=== PATIENT | female | born 1955 | race Caucasian/White ===

== ENCOUNTER 2017-01-06 07:42 | Day surgery (SDC) | payer BC, SELFPAY ==
[2017-01-04 20:34] LABS: BASOPHILS 0.6 %; BASOPHILS ABSOLUTE 0.05 10/3/uL (0.0-0.16); EOSINOPHILS 1.8 %; EOSINOPHILS ABSOLUTE 0.15 10/3/uL (0.0-0.53); HEMATOCRIT 42.1 % (36.0-48.0); HEMOGLOBIN 13.9 g/dL (12.0-16.0); IMMATURE GRANULOCYTES 0.2 %; IMMATURE GRANULOCYTES ABSOLUTE 0.02 10/3/uL (0.0-0.11); LYMPHOCYTES 37.6 %; LYMPHOCYTES ABSOLUTE 3.14 10/3/uL (0.67-4.30); MEAN PLATELET VOLUME 10.3 fL (9.2-13.0); MONOCYTES 6.6 %; MONOCYTES ABSOLUTE 0.55 10/3/uL (0.21-1.20); NEUTROPHILS 53.2 %; NEUTROPHILS ABSOLUTE 4.43 10/3/uL (2.02-8.40); PLATELET COUNT 383 10/3/uL (150-400); RBC DISTRIBUTION WIDTH 13.9 % (12.0-16.0); RED CELL COUNT 4.21 10/6/uL (4.0-5.6); WHITE BLOOD CELLS 8.3 10/3/uL (4.5-10.5)
[2017-01-04 20:36] LABS: MANUAL DIFF NO %
[2017-01-04 20:59] LABS: A/G RATIO 1.3 (0.7-1.9); BUN (BLOOD UREA NITROGEN) 10 MG/DL (6-23); CALCIUM, SERUM 8.9 MG/DL (8.5-10.4); CHLORIDE, SERUM 108 MMOL/L (96-112); CO2 (CARBON DIOXIDE) 27 MMOL/L (24-34); CREATININE 0.61 MG/DL (0.55-1.02); GFR AFRICAN AMERICAN 113 ML/MIN (>=60); GFR NON AFRICAN AMERICAN 98 ML/MIN (>=60); GLOBULIN 3.2 G/DL (2.5-4.1); SGOT(AST) 33 U/L (5-40); SGPT(ALT) 37 U/L (5-65); SODIUM, SERUM 145 MMOL/L (135-148); TOTAL BILIRUBIN 0.2 MG/DL (0-1.2); TOTAL PROTEIN 7.2 G/DL (6.0-8.5)
[2017-01-04 21:01] LABS: ALKALINE PHOSPHATASE 82 U/L (45-117); GLUCOSE, SERUM 93 MG/DL (60-99); POTASSIUM, SERUM 3.7 MMOL/L (3.5-5.3)
--- NOTE | ~2017-01-06 | OP ---
Record Of Operation [facility] [address] [place]. [address] NAME: ANDRE UGALDE : 55 [place]US : [place] [facility] [place] [id number] AGE: 61 ADM/REG DATE : 01/06/17 MR#: [id number] REPORT SERV DATE: 01/06/17 DICTATED BY: ERIBERTO JEWELL JR. DATE: 01/06/17 REPORT STATUS : Draft TRANSCRIBED BY: BRIAN DATE: 01/06/17 DATE OF PROCEDURE: REASON FOR SURGERY: This 61-year-old patient presents with a malignancy in the superior right breast. She has been counseled extensively and the extent of the tumor oriented on ultrasound. She is now to undergo breast preservation therapy. PREOPERATIVE DIAGNOSIS: Carcinoma, right breast. POSTOPERATIVE DIAGNOSIS: Carcinoma, right breast. SURGERY PERFORMED: Dilliner node localization followed by right breast segmentectomy and sentinel node resection. DESCRIPTION OF PROCEDURE: The patient was initially injected in the nuclear medicine facility. She was taken to the operating room, and under general anesthesia, she was prepped and draped in supine position in usual sterile fashion. A curvilinear incision was made superiorly in the right breast over the palpable mass. Vertical dissection was carried down to 0.5 cm and flaps were then elevated to incorporate the entire breast mound. Attention was turned in the longitudinal fashion to incorporate the ultrasound extension of the nodularity. A 3-dimensional excision, measuring 4 x 4 x 5 cm was performed keeping the mass center most within the specimen. It was removed and oriented for pathology. A full centimeter margin in the first section was noted. On sectioning with pathology, a 0.5 cm margin was evident as expected with the closest margin appearing in the superficial fatty plane, but still, at least a 0.5 cm remains. The wound was irrigated and hemostasis obtained. The wound was closed with two layers of Monocryl. Attention was turned to the right axilla. With help of the gamma probe, a small curvilinear incision was made and vertical dissection was carried down to a singly active spot. Two small nodes were removed that were both active with background counts as recorded in the log book. Background counts were recorded. The wound was irrigated and hemostasis obtained. The wound was closed with two layers of Monocryl. The patient tolerated the procedure well without complications. ESTIMATED BLOOD LOSS: Less than 20 mL. SPONGE COUNT: Correct. MR/MODL Eriberto Jewell Jr., M.D. Record Of Operation [facility] [address] [place]. [address] NAME: ANDRE UGALDE : 55 [place] [facility] [place] [id number] AGE: 61 ADM/REG DATE : 01/06/17 MR#: [id number] REPORT SERV DATE: 01/06/17 DICTATED BY: ERIBERTO JEWELL JR. DATE: 01/06/17 REPORT STATUS : Draft TRANSCRIBED BY: BRIAN DATE: 01/06/17 / [id number] CC: Chris Messer Jr., M.D. [facility]
[~2017-01-06 07:42] MED LIST: BEN25 PO; PRAVAC PO; PRILO PO; SYN88 PO; ZYRTEC ALLGY10 MG PO
== END 2017-01-06 13:23 | disposition home or self-care (01) ==
LOC: SDC 07:42
PROVIDERS: Surgery Surgical Oncology
PROC: 07B50ZX Excision of Right Axillary Lymphatic, Open Approach, Diagnostic (ICD-10-PCS; 2017-01-06)
PROC: 0HBT0ZZ Excision of Right Breast, Open Approach (ICD-10-PCS; principal; 2017-01-06 09:00)
DX: C50.811 Malignant neoplasm of overlapping sites of right female breast (principal); Z17.0 Estrogen receptor positive status [ER+]; E03.9 Hypothyroidism, unspecified; M25.559 Pain in unspecified hip; K21.9 Gastro-esophageal reflux disease without esophagitis; F17.210 Nicotine dependence, cigarettes, uncomplicated; Z88.2 Allergy status to sulfonamides; Z79.899 Other long term (current) drug therapy; Z90.710 Acquired absence of both cervix and uterus; Z98.890 Other specified postprocedural states
CPT/HCPCS: 36415; 71020; 78195; 80053; 85025; 88307; 88342; 93005; A9541; J0690; J1170; J2250; J2405; J3010